=== PATIENT | female | born 2000 | race African-American/Black ===

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

== ENCOUNTER 2021-06-10 13:40 | Emergency (ER) | payer MEDICAID ==
[~2021-06-10] VITALS: Ht 154.9 cm; Wt 90.0 kg
[2021-06-10] MEDS ORDERED: HYDROCODONE/ACETAMINOPHEN 5/325MG TABLET PO ONE (14:30)
[2021-06-10] MEDS ORDERED: METHOCARBAMOL 500MG TABLET PO ONE (14:45)
[2021-06-10] MEDS ORDERED: KETOROLAC 60MG/2ML VIAL IM ONE (14:45)
[2021-06-10 15:48] VITALS: BP 117/87
[2021-06-10] MEDS ORDERED: NAPR-681 MT (17:19)
[2021-06-10] MEDS ORDERED: METH-773 MT (17:19)
== END 2021-06-10 17:34 | disposition home or self-care (01) ==
LOC: ER 13:40
DX: S16.1XXA Strain of muscle, fascia and tendon at neck level, initial encounter (principal); S39.012A Strain of muscle, fascia and tendon of lower back, initial encounter; V49.49XA Driver injured in collision with other motor vehicles in traffic accident, initial encounter; Y93.89 Activity, other specified; Y92.488 Other paved roadways as the place of occurrence of the external cause
CPT/HCPCS: 72040; 72100; 96372; 99284; J1885